=== PATIENT | male | born 1975 | race African-American/Black ===

== ENCOUNTER 2016-07-01 00:35 | Emergency (ER) | payer MEDICAID ==
[~2016-07-01] VITALS: Ht 170.2 cm; Wt 71.0 kg
[2016-07-01] MEDS ORDERED: LIDOCAINE HCL 1% 20ML VIAL (Pyxis) INJ MC ONE (03:45)
[2016-07-01] MEDS ORDERED: BACITRACIN ZINC OINT UDPKT TOP ONE (03:45)
[2016-07-01 05:13] VITALS: BP 138/88
== END 2016-07-01 08:53 | disposition home or self-care (01) ==
LOC: ER 08:32
DX: S01.411A Laceration without foreign body of right cheek and temporomandibular area, initial encounter (principal); S62.306A Unspecified fracture of fifth metacarpal bone, right hand, initial encounter for closed fracture; F12.10 Cannabis abuse, uncomplicated; Y00.XXXA Assault by blunt object, initial encounter; Y93.51 Activity, roller skating (inline) and skateboarding; Y92.488 Other paved roadways as the place of occurrence of the external cause
CPT/HCPCS: 12013; 29125; 73130; 99284; J3490

== ENCOUNTER 2021-08-17 08:42 | Emergency (ER) | payer MEDICAID, OTHER ==
[~2021-08-17] VITALS: Ht 172.7 cm; Wt 75.0 kg
[2021-08-17] MEDS ORDERED: IBUPROFEN 600MG TABLET PO STA (10:22)
[2021-08-17] MEDS ORDERED: NAPR-681 PO (11:51)
[2021-08-17 11:58] VITALS: BP 127/76
== END 2021-08-17 12:06 | disposition home or self-care (01) ==
LOC: ER 08:42
DX: M25.562 Pain in left knee (principal)
CPT/HCPCS: 73562; 99283

== ENCOUNTER 2022-07-06 10:06 | Emergency (ER) | payer MEDICAID, OTHER ==
[~2022-07-06] VITALS: Ht 170.2 cm; Wt 71.0 kg
[~2022-07-06 10:06] MED LIST: NAPR-681 PO
[2022-07-06] MEDS ORDERED: IBUPROFEN 600MG TABLET PO ONE (11:15)
[2022-07-06] MEDS ORDERED: NAPR-681 MT (11:16)
[2022-07-06 11:51] VITALS: BP 136/82
== END 2022-07-06 11:51 | disposition home or self-care (01) ==
LOC: ER 10:06
DX: M25.562 Pain in left knee (principal)
CPT/HCPCS: 73560; 73590; 99284

== ENCOUNTER 2023-01-10 14:35 | Emergency (ER) | payer OTHER ==
[~2023-01-10] VITALS: Ht 175.3 cm; Wt 72.0 kg
[~2023-01-10 14:35] MED LIST changes: +NAPR-681 MT
[2023-01-10 14:39] VITALS: BP 133/83; TEMP 98; O2SAT 100
[2023-01-10 14:41] VITALS: PULSE 88; RESP 16
[2023-01-10] MEDS: LIDOCAINE HCL/PF 1% 10 MG/ML 5ML VIAL INFIL ONE (17:30)
[2023-01-10] MEDS ORDERED: CEPH500C2 MT (19:34)
== END 2023-01-10 20:05 | disposition home or self-care (01) ==
LOC: ER 14:35
DX: L02.01 Cutaneous abscess of face (principal); F12.10 Cannabis abuse, uncomplicated
CPT/HCPCS: 99283; J3490

== ENCOUNTER 2023-03-27 12:08 | Emergency (ER) | payer MEDICAID, OTHER ==
[~2023-03-27] VITALS: Ht 172.7 cm; Wt 68.0 kg
[~2023-03-27 12:08] MED LIST changes: +CEPH500C2 MT
[2023-03-27 12:10] VITALS: PULSE 100
[2023-03-27 12:22] VITALS: BP 121/72; RESP 20; TEMP 98.1; O2SAT 99
[2023-03-27 12:49] LABS: BASOPHILS % 0.4 % (0.0-2.0); HEMATOCRIT. 41.3 % (42.0-52.0); HEMOGLOBIN. 14.1 g/dL (14.0-18.0); LYMPHOCYTES % 34.7 % (20.0-50.0); MEAN CORPUSCULAR HEMOGLOBIN 31.5 pg (28.0-32.0); MEAN CORPUSCULAR HGB CONC 34.2 g/dL (31.0-37.0); MEAN PLATELET VOLUME 8.6 fl (7.4-10.4); MONOCYTES % 7.7 % (2.0-8.0); NEUTROPHILS % 52.2 % (40.0-76.0); PLATELET 277 x1000/uL (130-400); RED CELL DISTRIBUTION WIDTH 13.5 % (11.6-14.6); WHITE BLOOD COUNT 7.7 x1000/uL (4.5-11.0)
[2023-03-27 12:53] LABS: CLARITY URINE CLEAR (CLEAR); COLOR URINE YELLOW (YELLOW); GLUCOSE URINE NEGATIVE (NEGATIVE); KETONES URINE NEGATIVE (NEGATIVE); LEUKOCYTE ESTERASE URINE 1+ (NEGATIVE); NITRITE URINE NEGATIVE (NEGATIVE); OCCULT BLOOD URINE NEGATIVE (NEGATIVE); PROTEIN URINE NEGATIVE (NEGATIVE); SPECIFIC GRAVITY URINE 1.022 (1.005-1.030)
[2023-03-27 13:08] LABS: ALANINE AMINOTRANSFERASE 19 IU/L (10-49); ALBUMIN 4.5 g/dL (3.2-4.8); ASPARTATE AMINOTRANSFERASE 33 IU/L (<34); BILIRUBIN TOTAL 0.5 mg/dL (0.1-1.0); CALCIUM 9.4 mg/dL (8.7-10.4); CARBON DIOXIDE 28 mEq/L (21-32); CHLORIDE 107 mEq/L (98-107); CREATININE 1.3 mg/dL (0.6-1.3); GLUCOSE 83 mg/dL (70-105); PROTEIN TOTAL 7.3 g/dL (6.0-8.3); SODIUM 140 mEq/L (136-145); TROPONIN I HIGH SENSITIVITY 42 ng/L (3.0-53); UREA NITROGEN BLOOD 13 mg/dL (9-23)
[2023-03-27 13:31] LABS: BACTERIA URINE TRACE; SQUAMOUS EPITHELIAL CELL URINE RARE /lpf (RARE/1+)
[2023-03-27 13:32] LABS: RBC URINE NONE SEEN /hpf (0-2)
[2023-03-27 13:46] LABS: PROTHROMBIN TIME 10.8 sec (9.6-11.0)
== END 2023-03-27 18:58 | disposition left against medical advice (07) ==
LOC: ER 12:26
DX: R07.89 Other chest pain (principal); Z53.21 Procedure and treatment not carried out due to patient leaving prior to being seen by health care provider
CPT/HCPCS: 36415; 71045; 80053; 81003; 84484; 85025; 93005; 99281; 99285

== ENCOUNTER 2023-03-28 08:37 | Emergency (ER) | payer MEDICAID ==
[~2023-03-28] VITALS: Ht 170.2 cm; Wt 71.0 kg
[2023-03-28 08:41] VITALS: BP 149/54; PULSE 84; RESP 16; TEMP 98; O2SAT 99
[2023-03-28 10:13] LABS: BASOPHILS % 0.6 % (0.0-2.0); EOSINOPHILS % 3.9 % (0.0-5.0); HEMATOCRIT. 44.2 % (42.0-52.0); HEMOGLOBIN. 15.3 g/dL (14.0-18.0); LYMPHOCYTES % 29.5 % (20.0-50.0); MEAN CORPUSCULAR HEMOGLOBIN 31.6 pg (28.0-32.0); MEAN CORPUSCULAR HGB CONC 34.5 g/dL (31.0-37.0); MEAN CORPUSCULAR VOLUME 91.4 fL (80.0-94.0); MEAN PLATELET VOLUME 8.7 fl (7.4-10.4); MONOCYTES % 9.2 % (2.0-8.0); NEUTROPHILS % 56.8 % (40.0-76.0); PLATELET 288 x1000/uL (130-400); RED BLOOD CELL COUNT 4.84 mill/uL (4.7-6.1); RED CELL DISTRIBUTION WIDTH 13.5 % (11.6-14.6); WHITE BLOOD COUNT 8.4 x1000/uL (4.5-11.0)
[2023-03-28 10:22] LABS: PROTHROMBIN TIME 10.9 sec (9.6-11.0)
[2023-03-28 10:40] LABS: ALANINE AMINOTRANSFERASE 19 IU/L (10-49); ALBUMIN 4.7 g/dL (3.2-4.8); ASPARTATE AMINOTRANSFERASE 29 IU/L (<34); BILIRUBIN TOTAL 0.6 mg/dL (0.1-1.0); CARBON DIOXIDE 28 mEq/L (21-32); CHLORIDE 105 mEq/L (98-107); CREATININE 1.2 mg/dL (0.6-1.3); GLUCOSE 93 mg/dL (70-105); POTASSIUM 4.6 mEq/L (3.5-5.1); PROTEIN TOTAL 7.7 g/dL (6.0-8.3); SODIUM 137 mEq/L (136-145); TROPONIN I HIGH SENSITIVITY 39 ng/L (3.0-53); UREA NITROGEN BLOOD 11 mg/dL (9-23)
[2023-03-28] MEDS ORDERED: ASPIRIN 325MG EC TABLET PO ONE (11:00)
[2023-03-28] MEDS ORDERED: ASPIRIN 325MG EC TABLET PO NR (15:45)
[2023-03-28 21:30] LABS: TROPONIN I HIGH SENSITIVITY 34 ng/L (3.0-53)
== END 2023-03-28 23:18 | disposition left against medical advice (07) ==
LOC: ER 08:37 → EDBEDREQTM 13:10 → EDBEDREQ 13:10 → ER 23:18
DX: R07.89 Other chest pain (principal); R79.89 Other specified abnormal findings of blood chemistry; F12.10 Cannabis abuse, uncomplicated
CPT/HCPCS: 36415; 71045; 80053; 84484; 85025; 93005; 99285

== ENCOUNTER 2024-10-10 11:59 | Emergency (ER) | payer MEDICAID ==
[~2024-10-10] VITALS: Ht 170.2 cm; Wt 73.0 kg
[2024-10-10 12:06] VITALS: O2SAT 98
[2024-10-10] MEDS ORDERED: LIDO-53 TP (12:55)
[2024-10-10] MEDS ORDERED: METH4TAB95 MT (12:55)
[2024-10-10] MEDS: IBUPROFEN 600MG TABLET PO ONE (13:13)
[2024-10-10] MEDS: LIDOCAINE 5% PATCH TOP SCH (13:13)
[2024-10-10 13:17] VITALS: BP 125/71; PULSE 81; RESP 18; TEMP 36.7; O2SAT 99
== END 2024-10-10 13:28 | disposition home or self-care (01) ==
LOC: ER 11:59
DX: M54.50 Low back pain, unspecified (principal); F12.90 Cannabis use, unspecified, uncomplicated; Z79.899 Other long term (current) drug therapy
CPT/HCPCS: 99283

== ENCOUNTER 2025-03-08 10:02 | Emergency (ER) | payer MEDICAID, OTHER ==
[~2025-03-08] VITALS: Ht 170.2 cm; Wt 72.0 kg
[~2025-03-08 10:02] MED LIST changes: +LIDO-53 TP; +METH4TAB95 MT
[2025-03-08 10:13] VITALS: BP 111/51; PULSE 74; RESP 18; TEMP 36.8; O2SAT 100
[2025-03-08] MEDS ORDERED: SULF1TAB48 MT (11:04)
[2025-03-08] MEDS ORDERED: CEFP200T13 MT (11:04)
[2025-03-08] MEDS ORDERED: IBUP-2030 MT (11:04)
== END 2025-03-08 11:21 | disposition home or self-care (01) ==
LOC: ER 11:08
DX: L02.01 Cutaneous abscess of face (principal); L03.213 Periorbital cellulitis; F12.90 Cannabis use, unspecified, uncomplicated
CPT/HCPCS: 99283